=== PATIENT | female | born 1945 | race Two or more races ===

== ENCOUNTER 2024-11-28 18:44 | Emergency (ER) | payer OTHER ==
[~2024-11-28] VITALS: Ht 157.5 cm; Wt 70.0 kg
--- NOTE | 2024-11-28 19:18 | ED.PDOC ---
Jon. trauma (HPI) HPI Comments This patient is a 79-year-old female who came to ER for fall injury. Patient was at home earlier, accidentally fell backwards, hitting her lower back on the fireplace. Denies any other injuries. Denies any head trauma or loss of consciousness. Patient was able to stand up but with assistance. Vital signs were stable. Granddaughter denies any known history of back issues. 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 Hx Family History Family History: Reviewed,noncontributory to illness Social History Smoker: Non-Smoker Alcohol: Denies ETOH Use Drugs: Denies Drug Use Lives In: Home Constitutional: denies: chills, diaphoresis, fatigue, fever, malaise, sweats, weakness, others EENTM: denies: blurred vision, double vision, ear bleeding, ear discharge, ear drainage, ear pain, ear ringing, eye pain, eye redness, hearing loss, mouth pain, mouth swelling, nasal discharge, nose bleeding, nose congestion, nose pain, photophobia, tearing, throat pain, throat swelling, voice changes, others Respiratory: denies: cough, hemoptysis, orthopnea, SOB at rest, shortness of breath, SOB with excertion, stridor, wheezing, others Cardiovascular: denies: chest pain, dizzy spells, diaphoresis, Dyspnea on exertion, edema, irregular heart beat, left arm pain, lightheadedness, palpitati ons, PND, syncope, others Gastrointestinal: denies: abdomen distended, abdominal pain, blood streaked bowels, constipated, diarrhea, dysphagia, difficulty swallowing, hematemesis, melena, nausea, poor appetite, poor fluid intake, rectal bleeding, rectal pain, vomiting, others Genitourinary: denies: abnormal vagina bleeding, burning, dyspareunia, dysuria, flank pain, frequency, hematuria, incontinence, pain, , vagina discharge, urgency, others Neurological: denies: dizziness, fainting, headache, left sided numbness, left sided weakness, numbness, paresthesia, pre-existing deficit, right sided numbness, right sided weakness, seizure, speech problems, tingling, tremors, weakness, others Musculoskeletal: reports: back pain; denies: gout, joint pain, joint swelling, muscle pain, muscle stiffness, neck pain, others Integumetry: denies: bruises, change in color, change in hair/nails, dryness, laceration, lesions, lumps, rash, wounds, others Allergic/Immunocompromised: denies: Difficulty Healing, Frequent Infections, Hives, Itching, others Hematologic/Lymphatic: denies: anemia, blood clots, easy bleeding, easy bruising, swollen glands, others Endocrine: denies: excessive hunger, excessive sweating, excessive thirst, excessive urination, flushing, intolerance to cold, intolerance to heat, unexplained weight gain, unexplained weight loss, others Psychiatric: denies: anxiety, bipolar disorder, depression, hopeless, panic dis order, schizophrenia, sleepless, suicidal, others Physical Exam General Appearance: Moderate Distress (Due to mid and low back pain concerns.), Normal HEENT: Normal ENT Inspection, Pharynx Normal, TMs Normal Neck: Full Range of Motion, Non-Tender, Normal, Normal Inspection Respiratory: Chest Non-Tender, Lungs Clear, No Accessory Muscle Use, No Respiratory Distress, Normal Breath Sounds Cardiovascular: No Edema, No JVD, No Murmur, No Gallop, Normal Peripheral Pulses, Regular Rate/Rhythm Breast Exam: Deferred Gastrointestinal: No Organomegaly, Non Tender, No Pulsatile Mass, Normal Bowel Sounds, Soft Genitalia: Deferred Pelvic: Deferred Rectal: Deferred Extremities: Normal capillary refill, Normal inspection, Non-tender, No pedal edema Musculoskeletal : Location: Bilateral Extremity Location: Back (Patient did not displays tenderness to palpation throughout the lower thoracic and complete lumbar spine. Small patch of ecchymosis noted that has probably due to the follow up. No step-offs noted. Patient denies any saddle paresthesia. Bilateral distal neurovascularly intact.) Apperance: Normal Neurologic: Alert, media/instructional designer II-XII nml as Tested, No Motor Deficits, Normal Affect, Normal Mood, No Sensory Deficits Cerebellar Function: NOT DONE Reflexes: NOT DONE Skin: Dry, Normal Color, Warm Lymphatic: No Adenopathy Was a procedure done? Was a procedure done?: No Differential Diagnosis Multiple Trauma: Fractures, Spine Injury, Other (Fall injury, back contusion) X-Ray, Labs, Meds, VS Vital Signs Date Time Temp Pulse Resp B/P (MAP) Pulse Ox O2 Delivery O2 Flow Rate FiO2 11/28/24 18:48 97.5 77 20 135/72 96 97.5 Current Medications Medications (Trade) Dose Ordered Sig/Chrissy Route Start Time Stop Time Status Last Admin Acetaminophen/ Hydrocodone Bitart ([place] 10/325MG Tab) 1 tab ONCE ONCE PO 11/28/24 19:15 11/28/24 19:18 DC 11/28/24 19:59 X-Ray, Labs, Meds, VS Comment All studies performed in the ED were evaluated by me personally. Imaging studies were unremarkable for any thoracic or lumbar vertebrae fractures. Natalie ramos appears to have sustained back contusions based on her follow up. Advised patient utilize pain medication as needed as well as ice therapy. Time of 1ST Reevaluation: 20:21 Reevaluation 1ST: Improved Consultation: PCP Patient Education/Counseling: Diagnosis, Treatment Family Education/Counseling: Diagnosis, Treatment Departure 1 Departure Time of Disposition: 20:22 Impression: Primary Impression: Back contusion Disposition: HOME / SELF CARE / HOMELESS Condition: Stable Additional Instructions: Advised patient utilize pain medication as needed for symptomatic relief as well as ice therapy. If symptoms continue, patient will need to follow up with the primary care provider for long-term management. e-Prescriptions Hydrocodone-Acetaminophen (Hydrocodone Bitartrate/AC 5-325 mg) 1 Tab Tab 1 TAB PO Q6HP PRN, #15 TAB Prov: DANIS PINEDA PAC 11/28/24 Ibuprofen Micronized (Ibuprofen) 600 Mg Tab 600 MG PO Q6HP PRN, #20 TAB Prov: DANIS PINEDA PAC 11/28/24 Discharged With: Self, Friend Critical Care Note Critical Care Time?: No Stability Stability form required: No Heart Score Heart Score: Heart Score Response (Comments) Value History N/A 0 EKG N/A 0 Age N/A 0 Risk Factors N/A 0 Troponin N/A 0 Total 0 I personally scribed for DANIS PINEDA PAC ([email or web address]) on 11/28/24 at 19:18. Electronically submitted by [facility]pi [facility] ([facility]). I personally scribed for DANIS PINEDA PAC ([email or web address]) on 11/28/24 at 19:24. Electronically submitted by Epi Jamil ([facility]). DANIS PINEDA PAC Nov 28, 2024 19:18
[2024-11-28] MEDS: HYDROcodone-ACET 10/325MG TAB PO ONE (19:59)
--- NOTE | 2024-11-28 20:04 | DVH ---
INDICATION: Fall/trauma TECHNIQUE: 4 views of the thoracic spine were obtained. COMPARISON: None FINDINGS: There is no evidence of fracture, subluxation and/or dislocation. The alignment is anatomical. The paravertebral soft tissues were unremarkable. 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 IMPRESSION: No acute osseus abnormality. Moderate degenerative changes.
--- NOTE | 2024-11-28 20:06 | DVH ---
INDICATION: Fall/trauma pain TECHNIQUE: 4 views of the lumbar spine were obtained. COMPARISON: XY SPINE THORACIC 2VIEW on DOS: 11/28/24 FINDINGS: Grade 1 anterolisthesis of L4 on L5. Alignment otherwise maintained. Vertebral body heights are preserved no fractures. Moderate degenerative disease throughout the mid and lower lumbar spine. Advanced facet degenerative changes throughout the mid and lower lumbar spine. IMPRESSION: No acute fracture or subluxation.
[2024-11-28] MEDS ORDERED: HYDR-4902 PO (20:23)
[2024-11-28] MEDS ORDERED: IBUP1TAB5 PO (20:23)
[2024-11-28 21:00] VITALS: RESP 16
[2024-11-28 21:17] VITALS: BP 103/56; PULSE 68; RESP 16; TEMP 97.9; O2SAT 97
== END 2024-11-28 21:23 | disposition home or self-care (01) ==
LOC: ER 18:48
DX: S20.229A Contusion of unspecified back wall of thorax, initial encounter (principal); E11.9 Type 2 diabetes mellitus without complications; W19.XXXA Unspecified fall, initial encounter; Y93.89 Activity, other specified; Y92.89 Other specified places as the place of occurrence of the external cause; Y99.8 Other external cause status
CPT/HCPCS: 72070; 72100